=== PATIENT | female | born 1995 | race Two or more races ===

== ENCOUNTER 2023-11-10 18:13 | Inpatient (IN) | payer OTHER ==
[~2023-11-10] VITALS: Ht 180.3 cm; Wt 2.7 kg
[~2023-11-10 18:13] MED LIST: PRENA1 CHEW TA1.4 MG PO
[2023-11-10] MEDS ORDERED: AMPICILLIN SODIUM 2,000 MG VIAL ONE (19:16)
[2023-11-10] MEDS ORDERED: BETAMETHASONE ACETATE,SOD PHOS 30 MG/5 ML ML ONE (19:17)
[2023-11-10] MEDS ORDERED: BETAMETHASONE ACETATE,SOD PHOS 30 MG/5 ML ML IM ONE ×2 (19:40→21:00)
[2023-11-10 20:04] LABS: PH,URINE 5.5 (5.0-8.0); URINE BILIRRUBIN Small (NEGATIVE); URINE BLOOD Negative; URINE COLOR Dark Yellow; URINE GLUCOSE Negative (NEGATIVE); URINE KETONE Trace (NEGATIVE); URINE LEUKOCYTE Small; URINE NITRATE Negative; URINE PROTEIN 30 (NEGATIVE)
[2023-11-10 20:06] LABS: URINE BACTERIA 4162.9 uL (0.0-1933); URINE RBC 16.3 uL (0.0-20.8); URINE WBC 208.8 uL (0.0-23.2)
[2023-11-10 20:10] LABS: HEMATOCRIT 27.7 % (36.0-45.00); HEMOGLOBIN 9.1 g/dL (12.0-15.00); MEAN CORPUSCULAR HEMOGLOBIN 24.6 pg (27.00-32.0); MEAN CORPUSCULAR HGB CONC 32.8 g/dl (32.0-36.0); PLATELET COUNT 208 K/uL (150-450); RED BLOOD COUNT 3.69 M/uL (4.00-6.00); RED CELL DISTRIBUTION WIDTH 16.9 % (11.5-14.5)
[2023-11-10 20:17] LABS: INR 0.98; PARTIAL THROMBOPLASTIN TIME 28.2 SECONDS (22.0-34.0); PROTHROMBIN TIME 10.7 SECONDS (9.0-11.5)
[2023-11-10 20:21] LABS: URINE CAST 1.22 uL (0.0-1.40)
[2023-11-10 20:22] LABS: URINE APPEARANCE CLOUDY
[2023-11-10 20:46] LABS: ALBUMIN 2.8 gm/dL (3.4-5.0); BILIRUBIN TOTAL 0.27 mg/dL (0.3-1.2); CALCIUM 8.8 mg/dL (8.5-10.1); CREATININE SERUM 0.52 mg/dL (0.55-1.02); GFR 139.41; GLOBULINA 3.5 G/DL (2.4-3.5); POTASSIUM 3.87 mEq/L (3.5-5.1); TOTAL PROTEIN 6.3 gm/dL (6.4-8.2)
[2023-11-10] MEDS ORDERED: IRON325 MG PO (20:54)
[2023-11-10] MEDS ORDERED: RINGERS SOLUTION,LACTATED 1,000 ML IV SCH (21:00)
[2023-11-11] MEDS ORDERED: AMPICILLIN SODIUM 2,000 MG VIAL ONE (06:17)
[2023-11-11] MEDS ORDERED: AMPICILLIN SODIUM 1,000 MG VIAL ONE ×2 (07:44→17:10)
[2023-11-11] MEDS ORDERED: SOD FERRIC GLUC COMPLX/SUCROSE 62.5 MG in 0.9 % SODIUM CHLORIDE 50 ML IV SCH (09:00)
[2023-11-11] MEDS ORDERED: SOD FERRIC GLUC COMPLX/SUCROSE 62.5 MG/5 ML AMPUL IV ONE (09:43)
[2023-11-11] MEDS ORDERED: AMPICILLIN SODIUM 2,000 MG VIAL IV SCH ×2 (12:00)
[2023-11-11] MEDS ORDERED: BETAMETHASONE ACETATE,SOD PHOS 30 MG/5 ML ML IM SCH (21:00)
[2023-11-12] MEDS ORDERED: AMPICILLIN SODIUM 1,000 MG VIAL ONE ×4 (00:35→20:09)
[2023-11-12] MEDS ORDERED: CHLORHEXIDINE GLUCONATE 120 ML BOTTLE TOP ONE ×2 (07:56→12:02)
[2023-11-12] MEDS ORDERED: ERYTHROMYCIN BASE 1 GM TUBE OP ONE ×2 (07:56→12:01)
[2023-11-12] MEDS ORDERED: OXYTOCIN 10 UNITS/ML VIAL ONE ×2 (07:56→12:01)
[2023-11-12] MEDS ORDERED: CHLORHEXIDINE GLUCONATE 120 ML BOTTLE TOP NR (12:15)
[2023-11-12] MEDS ORDERED: ERYTHROMYCIN BASE 1 GM TUBE OP NR (12:15)
[2023-11-12] MEDS ORDERED: OXYTOCIN 10 UNITS/ML VIAL IV NR (12:15)
[2023-11-12] MEDS ORDERED: CEFAZOLIN SODIUM 1,000 MG VIAL ONE (13:13)
[2023-11-12] MEDS ORDERED: CHLORHEXIDINE GLUCONATE 120 ML BOTTLE TOP SCH (13:45)
[2023-11-12] MEDS ORDERED: PROMETHAZINE HCL 25 MG/ML AMPUL IV SCH (13:45)
[2023-11-12] MEDS ORDERED: ERYTHROMYCIN BASE 1 GM TUBE OP SCH (13:45)
[2023-11-12] MEDS ORDERED: OXYTOCIN 1,000 ML IV SCH (13:45)
[2023-11-12] MEDS ORDERED: MEPERIDINE HCL/PF 50 MG/ML VIAL IV SCH (13:45)
[2023-11-12] MEDS ORDERED: RINGERS SOLUTION,LACTATED 1,000 ML IV SCH (13:45)
[2023-11-12] MEDS ORDERED: CEFAZOLIN SODIUM 1,000 MG VIAL IV ONE (14:45)
[2023-11-12] MEDS ORDERED: ONDANSETRON HCL 2 MG/ML VIAL ONE (14:54)
[2023-11-12] MEDS ORDERED: MORPHINE SULFATE 4 MG/ML VIAL IV ONE (14:55)
[2023-11-12 16:05] LABS: HEMATOCRIT 26.7 % (36.0-45.00); MEAN CELL VOLUME 74.8 fL (80.00-100.00); MEAN CORPUSCULAR HGB CONC 32.6 g/dl (32.0-36.0); PLATELET COUNT 182 K/uL (150-450); RED BLOOD COUNT 3.57 M/uL (4.00-6.00); RED CELL DISTRIBUTION WIDTH 16.8 % (11.5-14.5)
[2023-11-12] MEDS ORDERED: PROMETHAZINE HCL 50 MG/ML AMPUL IM ONE (16:10)
[2023-11-12 16:11] LABS: HEMOGLOBIN 8.7 g/dL (12.0-15.00); MEAN CORPUSCULAR HEMOGLOBIN 24.3 pg (27.00-32.0)
[2023-11-12] MEDS ORDERED: SIMETHICONE 125 MG CAPSULE PO SCH (18:00)
[2023-11-13] MEDS ORDERED: ACETAMINOPHEN WITH CODEINE 1 UDTAB TABLET PO PRN (08:45)
[2023-11-13] MEDS ORDERED: NAPROXEN 500 MG TABLET PO SCH (09:00)
[2023-11-15] MEDS ORDERED: Tylenol #3 PO (07:50)
[2023-11-15] MEDS ORDERED: NAPR500T14 PO (07:50)
== END 2023-11-15 13:12 | disposition home or self-care (01) | DRG 786 ==
LOC: LDR 18:13 → OB/GYN 18:13 → O/R 11-12 13:01 → OB/GYN 11-12 14:39
PROVIDERS: Obstetrics & Gynecology; ADMIT Obstetrics & Gynecology; ATTEND Obstetrics & Gynecology
PROC: 4A1HXCZ Monitoring of Products of Conception, Cardiac Rate, External Approach (ICD-10-PCS; 2023-11-10)
PROC: 10D00Z1 Extraction of Products of Conception, Low, Open Approach (ICD-10-PCS; principal; 2023-11-12 08:00)
DX: O36.8130 Decreased fetal movements, third trimester, not applicable or unspecified (principal); O60.14X0 Preterm labor third trimester with preterm delivery third trimester, not applicable or unspecified; O34.211 Maternal care for low transverse scar from previous cesarean delivery; Z3A.36 36 weeks gestation of pregnancy; Z37.0 Single live birth; Z20.822 Contact with and (suspected) exposure to COVID-19